=== PATIENT | female | born 1980 | race Hispanic/Latino ===

== ENCOUNTER 2025-02-12 09:46 | Emergency (ER) | payer SELFPAY ==
[2025-02-12] MEDS ORDERED: Ibuprofen 800 MG TAB ONE (11:05)
[2025-02-12] MEDS ORDERED: Acetaminophen 500 MG TAB ONE (11:05)
[2025-02-12] MEDS ORDERED: Dexamethasone 10 MG/ML VIAL ONE (12:33)
== END 2025-02-12 12:50 | disposition home or self-care (01) ==
LOC: CSHERS 09:46
DX: R05.9 Cough, unspecified (principal)
CPT/HCPCS: 71045; 94640; J1100